=== PATIENT | female | born 1965 | race African-American/Black ===

== ENCOUNTER 2016-11-29 11:54 | Emergency (ER) | payer OTHER ==
[~2016-11-29] VITALS: Ht 172.7 cm; Wt 63.5 kg
[2017-01-06] MEDS ORDERED: NO MEDICATIONS (15:39)
== END 2016-11-29 12:56 | disposition left against medical advice (07) ==
LOC: CED 11:54
DX: Z53.21 Procedure and treatment not carried out due to patient leaving prior to being seen by health care provider (principal)

== ENCOUNTER 2016-12-09 09:28 | Emergency (ER) | payer OTHER ==
[~2016-12-09] VITALS: Ht 172.7 cm; Wt 63.5 kg
--- NOTE | ~2016-12-09 | CR124 ---
[facility] A Service of [facility] & [facility] RADIOLOGY TEXT RESULTS PATIENT: POLLO PAZ LOCATION: CFTX : 65 UNIT #: [id number] AGE: [address]: Tatyana Cabarles SEX: F ORDER DR: [id number] [facility] [address] [place], [place] [address] [id number] E MR#: [id number] Acc #: [id number] NAME: POLLO PAZ : 1965 SEX: F STUDY DATE/TIME: 12/09/2016 10:19 UNIT: [facility] ROOM: STUDY DESCRIPTION: CR Foot 2 Views Rt Attending Physician: Tatyana Cabrales P.A.-C. Ordering Physician: Tatyana Cabrales P.A.-C. Primary Care Physician: No Primary Care Physician MEDICAL IMAGING REPORT This report is preliminary unless electronic signature is present EXAM Right foot 3 views 12/09/2016 1019 hours HISTORY 51-year-old woman with 6-month history of left and right foot pain in the metatarsals and proximal phalanges of both feet. No known injury. COMPARISON Left foot 12/09/2016 FINDINGS AP, oblique and lateral views demonstrate no soft tissue swelling. The bone density is normal. There is no fracture or periosteal reaction. No significant joint space loss, spurring or erosions. IMPRESSION Negative right foot. Dictated by... Carolynn Sow M.D. THIS IS AN ELECTRONICALLY VERIFIED REPORT Carolynn Sow M.D. at 12/10/2016 8:53 AM TAMMY/janette TD: 12/09/2016 15:33 JOB #: [id number] MEDICAL IMAGING REPORT Page 1 of 1 COPY
--- NOTE | ~2016-12-09 | CR123 ---
[facility] A Service of [facility] & [facility] RADIOLOGY TEXT RESULTS PATIENT: POLLO PAZ LOCATION: CFTX : 65 UNIT #: [id number] AGE: [address]: Tatyana Cabrales SEX: F ORDER DR: [id number] [facility] [address] [place], [place] [address] [id number] E MR#: [id number] Acc #: [id number] NAME: POLLO PAZ : 1965 SEX: F STUDY DATE/TIME: 12/09/2016 10:19 UNIT: [facility] ROOM: STUDY DESCRIPTION: CR Foot 2 Views Lt Attending Physician: Tatyana Cabrales P.A.-C. Ordering Physician: Tatyana Cabrales P.A.-C. Primary Care Physician: No Primary Care Physician MEDICAL IMAGING REPORT This report is preliminary unless electronic signature is present EXAM Left foot, 3 views 12/09/2016 10:19 hours HISTORY A 51-year-old woman complaining of bilateral foot pain in the distal metatarsals and proximal phalanges for 6 months. No known injury. COMPARISON Right foot 12/09/2016 FINDINGS AP, lateral and oblique views demonstrate overall normal bone density. There is joint space loss, spurring and bunion formation at the first metatarsal-phalangeal joint. There is no fracture. IMPRESSION Joint space loss, spurring and bunion formation at the first metatarsal-phalangeal joint. Otherwise negative foot film. Dictated by... Carolynn Sow M.D. THIS IS AN ELECTRONICALLY VERIFIED REPORT Carolynn Sow M.D. at 12/10/2016 8:53 AM TAMMY/elsy TD: 12/09/2016 15:30 JOB #: [id number] MEDICAL IMAGING REPORT Page 1 of 1 COPY
[2017-01-06] MEDS ORDERED: NO MEDICATIONS (15:39)
== END 2016-12-09 11:30 | disposition home or self-care (01) ==
LOC: CED 09:28 → CFTX 09:28 → CPACUOF 10:24 → CFTX 10:24
DX: M79.671 Pain in right foot (principal); M79.672 Pain in left foot; R03.0 Elevated blood-pressure reading, without diagnosis of hypertension; F17.210 Nicotine dependence, cigarettes, uncomplicated
CPT/HCPCS: 73620; 82947; 96372; 99283; J1885

== ENCOUNTER → 2017-01-09 | Day surgery (SDC) | payer OTHER ==
[~2017-01-09] MED LIST: NO MEDICATIONS
--- NOTE | ~2017-01-09 | OR ---
Unit #: [id number] #: [id number] Patient: POLLO PAZ [id number] [address] [address] [id number] O MR#: [id number] NAME: POLLO PAZ ROOM: Date of Procedure: 01/09/2017 Admission Date: 01/09/2017 Surgeon: Francois Hollis M.D. : 1965 Attending Physician: Francois Hollis M.D. Primary Care Physician: [facility] OPERATIVE REPORT PROCEDURE PERFORMED Colonoscopy to anastomosis. INDICATIONS FOR PROCEDURE The patient with family history of colon cancer in father, undergoing surveillance colonoscopy. She has a subtotal colectomy done previously because of torsion of colon. MEDICATIONS Monitored anesthesia. POSTOPERATIVE FINDINGS 1. Colonoscopy completed to anastomosis at about 25 cm. Extensive lavaging needed to be done. No polyps, masses, or colitis was seen. 2. Distal small bowel was intact. Anastomosis was intact. PLAN Given her father's history, I recommend repeating scope in 5 years. DESCRIPTION OF PROCEDURE The patient was explained of the procedure, risks, and benefits along with risks and benefits of anesthesia. She was brought to the endoscopy room. Propofol anesthesia was given. Rectal exam was done, which was normal. Colonoscope was lubricated, passed up the rectum, advanced under direct vision to anastomosis at 25 cm and further into another 20 cm. No polyps, masses, or colitis was seen. Extensive lavaging was done. No other abnormalities seen either. Gently, the scope was pulled out. She tolerated it well. No major complications seen. Dictated by... Rio Hughes/aliyah TD: 01/09/2017 15:55 JOB #: [id number] CC: Alea Medina Aprn Unit #: [id number] #: [id number] Patient: POLLO PAZ OPERATIVE REPORT Page 1 of 1 X Francois Hollis MD PROCEDURE OPERATIVE NOTE
== END | disposition home or self-care (01) ==
LOC: COPS 13:03
DX: Z12.11 Encounter for screening for malignant neoplasm of colon (principal); F17.210 Nicotine dependence, cigarettes, uncomplicated; Z87.19 Personal history of other diseases of the digestive system; Z90.49 Acquired absence of other specified parts of digestive tract; Z80.0 Family history of malignant neoplasm of digestive organs
CPT/HCPCS: J2250